=== PATIENT | male | born 2000 | race Caucasian/White ===

== ENCOUNTER 2022-02-22 00:40 | Emergency (ER) | payer OTHER ==
[2022-02-22 00:48] VITALS: BP 151/99; PULSE 60; RESP 17; TEMP 98.2; BMI 33.7
== END 2022-02-22 02:09 | disposition home or self-care (01) ==
LOC: JER 00:40
DX: R10.13 Epigastric pain (principal)
CPT/HCPCS: 93005; 93010; 99283-25